=== PATIENT | female | born 1985 | race Caucasian/White ===

== ENCOUNTER → 2017-01-30 | Outpatient (CLI) | payer OTHER ==
[2017-01-30 07:54] LABS: CH 31.5; CHCM 35.3; HCT 42.6 % (34.0-46.0); HDW 2.92; HGB 14.8 gm/dL (11.4-16.0); MCH 31.1 pg (25.0-35.0); MCHC 34.8 g/dL (31.0-37.0); MCV 89.6 fL (80.0-100.0); Mean Platelet Volume 6.9; RBC 4.76 m/uL (3.80-5.40); RDW 13.2 % (11.5-15.5); WBC 6.6 k/uL (3.8-10.6)
[2017-01-30 08:17] LABS: Anion Gap 10 mmol/L; Blood Urea Nitrogen 12 mg/dL (7-17); Calcium 9.5 mg/dL (8.4-10.2); Carbon Dioxide 27 mmol/L (22-30); Chloride 104 mmol/L (98-107); Glucose 85 mg/dL (74-99); Non-African American GFR(MDRD) >60 (>60 ml/min/1.73 sqM); Sodium 141 mmol/L (137-145)
== END | disposition home or self-care (01) ==
LOC: LABWHC1 07:19
PROVIDERS: ATTEND Internal Medicine Interventional Cardiology
DX: E05.90 Thyrotoxicosis, unspecified without thyrotoxic crisis or storm (principal)
CPT/HCPCS: 36415; 80048; 84439; 84443; 85027

== ENCOUNTER 2017-09-21 20:27 | Emergency (ER) | payer OTHER ==
[2017-09-21 20:39] VITALS: BP 133/80; PULSE 88; RESP 16; TEMP 98.5
[2017-09-21] MEDS ORDERED: HYDROcodone/APAP 5-325MG 1 EACH TAB PO STA (20:56)
[2017-09-21] MEDS ORDERED: DIPH,PERTUS(ACELL)TETVAC-LF 0.5 ML VIAL IM ONE (20:56)
[2017-09-21] MEDS ORDERED: AMOXIC-POT CLAV 875MG STARTER 2 EACH TABLET PO STA (20:57)
--- NOTE | 2017-09-21 21:29 | ED ---
Animal Bite HPI - General Chief Complaint: Animal Bite Stated Complaint: Dog bite Time Seen by Provider: 09/21/17 20:47 Source: patient Mode of arrival: ambulatory Limitations: no limitations - History of Present Illness Initial Comments: 32-year-old female patient presents to the emergency department today for evaluation of animal bite to the left ring finger. Patient states approximately an hour and a half prior to arrival she was breaking up 2 dogs from fighting when the one dog bit her in the finger. She states it did go through her nail. Patient states that she is in significant amount of pain. She is unsure when her last tetanus vaccine was given. She denies any other injuries. She denies any paresthesia to the finger. Patient denies any headache, neck pain, back pain, chest pain, shortness of breath, dizziness, weakness, abdominal pain, nausea, vomiting, or difficulties with bowel movements or urination. - Related Data Previous Rx's Medication Instructions Recorded Amoxic-Pot Clav 875-125Mg 1 tab PO Q12HR #20 tablet 09/21/17 [Augmentin 875-125] Ibuprofen [Motrin] 600 mg PO Q8HR PRN #20 tab 09/21/17 Allergies Allergy/AdvReac Type Severity Reaction Status Date / Time No Known Allergies Allergy Verified 09/21/17 20:39 Review of Systems ROS Statement: Those systems with pertinent positive or pertinent negative responses have been documented in the HPI. ROS Other: All systems not noted in ROS Statement are negative. Past Medical History Past Medical History: No Reported History History of Any Multi-Drug Resistant Organisms: None Reported Past Surgical History: No Surgical Hx Reported Past Psychological History: No Psychological Hx Reported Smoking Status: Former smoker Past Alcohol Use History: Occasional Past Drug Use History: None Reported General Exam Limitations: no limitations General appearance: alert, in no apparent distress, other (This is a well- developed, well-nourished adult female patient in no acute distress. Vital signs upon presentation are temperature 98.5F, pulse 88, respirations 16, blood pressure 133/80, pulse ox 99% on room air.) Eye exam: Present: normal appearance, PERRL, EOMI. Absent: scleral icterus, conjunctival injection, periorbital swelling ENT exam: Present: normal exam, normal oropharynx, mucous membranes moist Respiratory exam: Present: normal lung sounds bilaterally. Absent: respiratory distress, wheezes, rales, rhonchi, stridor Cardiovascular Exam: Present: regular rate, normal rhythm, normal heart sounds. Absent: systolic murmur, diastolic murmur, rubs, gallop, clicks Extremities exam: Present: full ROM, normal capillary refill, other (Left ring finger exhibits laceration through the nail. Nail is avulsed at the area of the left proximal nail fold. Skin is otherwise pink, warm, and dry. Cap refills less than 3 seconds. Radial pulses 2+ and equal bilaterally.). Absent: normal inspection, tenderness, pedal edema, joint swelling, calf tenderness Neurological exam: Present: alert, oriented X3, CN II-XII intact Psychiatric exam: Present: normal affect, normal mood Skin exam: Present: warm, dry, intact, normal color. Absent: rash Course Vital Signs 09/21/17 20:35 Temperature 98.5 F Pulse Rate 88 Respiratory 16 Rate Blood Pressure 133/80 O2 Sat by Pulse 99 Oximetry Medical Decision Making - Medical Decision Making 32-year-old female patient presented to the emergency department today for evaluation of a dog bite to the left ring finger. Physical examination did reveal laceration through the nail but did pull the nail from the proximal nail fold. I did inject lidocaine 1% to the area and reinserted the nail to the fold. The patient tolerated this procedure well. It was soaked in an iodine solution. We did apply bacitracin and dressed the wound. She is educated regarding signs or symptoms of infection. She started on Augmentin. She is instructed to follow-up with her primary care physician for recheck. She is instructed to return here immediately for any new, worsening, or concerning symptoms. She verbalizes understanding and agrees with this plan. Disposition Clinical Impression: Dog bite, Nail bed injury Disposition: HOME SELF-CARE Condition: Good Instructions: Animal Bite (ED) Additional Instructions: Keep wound clean and dry. Follow-up with the primary care physician for recheck in 1-2 days. Complete antibiotic prescription and full. Return here immediately for any new, worsening, or concerning symptoms. Prescriptions: Amoxic-Pot Clav 875-125Mg [Augmentin 875-125] 1 tab PO Q12HR #20 tablet Ibuprofen [Motrin] 600 mg PO Q8HR PRN #20 tab PRN Reason: Pain Referrals: Randy Hirsch MD [Primary Care Provider] - 1-2 days Time of Disposition: :28
== END 2017-09-21 21:50 | disposition home or self-care (01) ==
LOC: EC 20:27
DX: S61.315A Laceration without foreign body of left ring finger with damage to nail, initial encounter (principal); Z87.891 Personal history of nicotine dependence; Z23 Encounter for immunization; W54.0XXA Bitten by dog, initial encounter
CPT/HCPCS: 90471; 90715; 99283

== ENCOUNTER 2017-10-20 21:35 | Emergency (ER) | payer OTHER ==
[2017-10-20 21:39] VITALS: BP 135/95; PULSE 76; RESP 18; TEMP 98.2
[2017-10-20] MEDS ORDERED: ONDANSETRON 4 MG/2 ML VIAL IVP STA (22:09)
[2017-10-20] MEDS ORDERED: ACETAMINOPHEN TAB 325 MG TAB PO STA (22:09)
--- NOTE | 2017-10-20 22:41 | CT ---
EXAMINATION TYPE: CT brain wo con DATE OF EXAM: 10/20/2017 COMPARISON: NONE HISTORY: Visual disturbance for approximately [address] DLP: 983.9 mGycm. Automated Exposure Control for Dose Reduction was Utilized. TECHNIQUE: CT scan of the head is performed without contrast. FINDINGS: Ventricles and sulci appear normal. There is no mass effect nor midline shift. There is n o sign of intracranial hemorrhage. Calvarium appears intact. There is no evidence of cerebral edema. CONCLUSION: Normal CT scan of the brain.
[2017-10-20] MEDS ORDERED: KETOROLAC 30 MG/ML 1 ML VIAL IM STA (23:05)
[2017-10-20] MEDS ORDERED: MECLIZINE 12.5 MG TAB PO STA (23:05)
[2017-10-20 23:33] LABS: Glucose,Whole Blood 125 mg/dL (75-99)
--- NOTE | 2017-10-20 23:42 | ED ---
Dizziness HPI - General Chief Complaint: Dizziness Stated Complaint: Vision problems Time Seen by Provider: 10/20/17 21:58 Source: patient Mode of arrival: ambulatory Limitations: no limitations - History of Present Illness Initial Comments: 32-year-old female presenting with black spots in her vision. Patient states at work around 8:30 PM she began to develop black spots in her vision like she was "staring at the sun". She states this continued for about an hour. Then developed a mild headache and some nausea. Patient states she's had similar symptoms in the past and was diagnosed with complex migraines. She denies any fevers chills, focal weakness or numbness, headache injury. States her LMP was one week prior. She states she is concerned that she is hypoglycemic because she has had many episodes of low blood sugar in the past. She denies any history of diabetes or use of diabetic medications. - Related Data Previous Rx's Medication Instructions Recorded Acetaminophen [Tylenol] 500 mg PO Q4-6H PRN #12 tab 10/20/17 Meclizine [Antivert] 25 mg PO BID PRN #12 tab 10/20/17 Allergies Allergy/AdvReac Type Severity Reaction Status Date / Time No Known Allergies Allergy Verified 10/20/17 21:39 Review of Systems ROS Statement: Those systems with pertinent positive or pertinent negative responses have been documented in the HPI. Review of Systems Constitutional: Denies fever, chills Eyes: Positive change in vision, Denies pain Ears, nose, mouth, throat: Denies headaches, Denies sore throat Cardiovascular: Denies chest pain. Denies palpitations Respiratory: Denies shortness of breath, Denies cough Gastrointestinal: Denies abdominal pain. Denies nausea, vomiting, diarrhea. Genitourinary: Denies hematuria, Denies infections Musculoskeletal: Denies pain, Denies swelling Integumentary: Denies rash Neurological: Positive headache, focal weakness, focal numbness Psychiatric: Denies anxiety, Denies depression Hematologic/Lymphatic: Denies easy bleeding or bruising ROS Other: All systems not noted in ROS Statement are negative. Past Medical History Past Medical History: No Reported History History of Any Multi-Drug Resistant Organisms: None Reported Past Surgical History: No Surgical Hx Reported Past Psychological History: No Psychological Hx Reported Smoking Status: Former smoker Past Alcohol Use History: Occasional Past Drug Use History: None Reported General Exam - General Exam Comments Initial Comments: General: Awake, alert, No acute Distress HENT: Normocephalic. Atraumatic Eyes: PERRL. EOMI. No scleral icterus. No injected conjunctiva. Visual acuity: 20/10 both, 20/10 left, 20/10 right. Visual paul intact. Neck: Full ROM Chest/Lungs: Clear to auscultation bilaterally. No wheezing, rhonchi, or rales Cardiac: Regular rate, rhythm. No murmurs or rubs Abdomen/GI: [Soft, nontender, nondistended. No rebound, guarding, or rigidity. Musculoskeletal: Full ROM Skin: Warm, dry, intact Neurologic: A/Ox3, no weakness, no sensory deficit, no abnormal gait, no coordination deficit Limitations: no limitations Course Vital Signs 10/20/17 21:37 Temperature 98.2 F Pulse Rate 76 Respiratory 18 Rate Blood Pressure 135/95 O2 Sat by Pulse 98 Oximetry Medical Decision Making - Medical Decision Making 32-year-old female presenting with she will change headache. On initial exam the patient is awake, alert, no acute distress. VSS. Patient has no neurologic or visual deficit on exam. Her CT was negative. Patient refused an IV, IV fluids, IV or IM Toradol. She stated she was just concerned that she had low blood sugar. POC glucose was 125. Her test was negative. She declined any further testing or treatment. Unlike SAH as patient has had similar symptoms in the past. She was seen by an filter tender jelly 6 months prior for similar symptoms and was instructed to get an MRI. She states she will follow up again for re-evaulation and possible MRI. She was given return to ED instructions and told to follow up with her primary care physician. - Lab Data Lab Results 10/20/17 Range/Units 22:17 Urine HCG, Qual Not Detected (Not Detectd) Disposition Clinical Impression: Headache, Dizziness Disposition: HOME SELF-CARE Condition: Good Prescriptions: Acetaminophen [Tylenol] 500 mg PO Q4-6H PRN #12 tab PRN Reason: Pain Meclizine [Antivert] 25 mg PO BID PRN #12 tab PRN Reason: Vertigo Is patient prescribed a controlled substance at d/c from ED?: No Referrals: Randy Hirsch MD [Primary Care Provider] - 1-2 days
== END 2017-10-20 23:47 | disposition home or self-care (01) ==
LOC: EC 21:35
DX: R42 Dizziness and giddiness (principal); R51 Headache; R11.0 Nausea; Z87.891 Personal history of nicotine dependence; Z53.29 Procedure and treatment not carried out because of patient's decision for other reasons
CPT/HCPCS: 36415; 70450; 81025; 99284

== ENCOUNTER 2018-07-24 14:22 | Emergency (ER) | payer OTHER ==
[2018-07-24] MEDS ORDERED: SODIUM CHLORIDE 0.9% 1,000 ML IV ONE (15:24)
[2018-07-24 15:46] LABS: Basophils % (A) 1 %; Eosinophils # (A) 0.1 k/uL (0-0.7); Eosinophils % (A) 1 %; HCT 42.5 % (34.0-46.0); HGB 14.5 gm/dL (11.4-16.0); Lymphocytes # (A) 0.8 k/uL (1.0-4.8); Lymphocytes % (A) 17 %; MCH 29.9 pg (25.0-35.0); MCV 87.9 fL (80.0-100.0); Mean Platelet Volume 6.8; Monocytes # (A) 0.6 k/uL (0-1.0); Monocytes % (A) 13 %; Neutrophils # (A) 3.3 k/uL (1.3-7.7); Neutrophils % (A) 65 %; Platelet Count 307 k/uL (150-450); RBC 4.84 m/uL (3.80-5.40); RDW 12.7 % (11.5-15.5)
[2018-07-24 16:00] LABS: ALT 45 U/L (9-52); AST 30 U/L (14-36); Albumin 4.7 g/dL (3.5-5.0); Alkaline Phosphatase 43 U/L (38-126); Anion Gap 9 mmol/L; Blood Urea Nitrogen 11 mg/dL (7-17); Calcium 9.6 mg/dL (8.4-10.2); Carbon Dioxide 28 mmol/L (22-30); Chloride 103 mmol/L (98-107); Glucose 94 mg/dL (74-99); Potassium 4.3 mmol/L (3.5-5.1); Sodium 140 mmol/L (137-145); Total Bilirubin 0.8 mg/dL (0.2-1.3); Total Protein 7.8 g/dL (6.3-8.2)
[2018-07-24 16:09] VITALS: RESP 18
--- NOTE | 2018-07-24 16:13 | CT ---
EXAMINATION TYPE: CT brain wo con DATE OF EXAM: 07/24/2018 COMPARISON: 10/20/2017 INDICATION: Dizziness. DLP: 1072.4 mGycm, Automated exposure control for dose reduction was used. CONTRAST: None CT of the brain is performed utilizing 3 mm thick sections through the posterior fossa and 3 mm thick sections through the remaining calvarium. Study is performed within 24 hours of arrival to the hosp [facility]. No abnormal hyperdensity is present to suggest an acute intracranial hemorrhage. No mass lesion is evident. No acute infarcts are evident. Ventricles and sulci are appropriate for the patient age. Paranasal sinuses and mastoid air cells within the [id number] are clear. IMPRESSIONS: 1. Normal CT Brain
--- NOTE | 2018-07-24 16:13 | XR ---
EXAMINATION TYPE: XR chest 2V DATE OF EXAM: 07/24/2018 COMPARISON: None INDICATION: Pain syncope TECHNIQUE: Frontal and lateral views of the chest are obtained. FINDINGS: The heart size is normal. The pulmonary vasculature is normal. The lungs are clear. IMPRESSION: 1. No acute pulmonary process.
[2018-07-24] MEDS ORDERED: MECLIZINE 12.5 MG TAB PO STA (16:46)
[2018-07-24] MEDS ORDERED: DIAZEPAM 5 MG/ML 2 ML INJ IVP STA (17:00)
--- NOTE | 2018-07-24 17:56 | ED ---
Headache HPI - General Chief Complaint: Headache Stated Complaint: dizziness Time Seen by Provider: 07/24/18 14:50 Mode of arrival: ambulatory Limitations: no limitations - History of Present Illness Initial Comments: 33-year-old female who denies past medical history presenting today for chief complaint of dizziness times a week and half. Patient states that she has had lightheaded/dizzy feeling, the "kind of feeling when you get off of a carnival ride" for the past 2 weeks. She also states she feels as though she is weak, she denies any focal weakness she states is generalized. Patient denies any URI symptoms, she denies any syncopal episodes. Patient denies any chest pain, dyspnea, dyspnea on exertion. Patient denies any recent travel, ear pain. Patient does admit to reading of the right ear that began last night this was intermittent. Patient states she has history of chronic migraines however she states she has not had headaches throughout the course the 2 weeks, she states she had 2 around off they were not constant thereafter worst headache of her life. She states she was not concerned about these headaches. Patient denies any head injury. Patient denies any nausea or vomiting. Patient states she has had decreased appetite. Patient denies any abdominal pain or . Patient denies any recent antibiotic use, fever chills or night sweats. Patient denies any pain in the ear or hearing loss. Patient states she's feels as though she is off balance but her gait is normal when she ambulates. Pt states these symptoms occurred 3 days after a chiropractor appointment. Patient states she did attempt to take her mother's Antivert, she denies this helping her alleviate symptoms. Patient states she has been following this complaint with her primary care provider who recommended brain imaging. She does have a follow-up with ears nose throat scheduled for July 30. Remainder review of systems is negative, patient denies any recent back pain, abdominal pain, nausea or vomiting, numbness or tingling, dysuria or hematuria, constipation or diarrhea, head injury, diplopia, vision loss or any other complaints. - Related Data Home Medications Medication Instructions Recorded Confirmed Amoxicillin/Potassium Clav 1 tab PO Q12HR 07/24/18 07/24/18 [Augmentin 875-125 Tablet] Previous Rx's Medication Instructions Recorded Meclizine [Antivert] 25 mg PO TID 5 Days #15 tab 07/24/18 predniSONE 50 mg PO DAILY 5 Days #5 tab 07/24/18 Allergies Allergy/AdvReac Type Severity Reaction Status Date / Time No Known Allergies Allergy Verified 07/24/18 15:56 Review of Systems ROS Statement: Those systems with pertinent positive or pertinent negative responses have been documented in the HPI. ROS Other: All systems not noted in ROS Statement are negative. Past Medical History Past Medical History: No Reported History History of Any Multi-Drug Resistant Organisms: None Reported Past Surgical History: No Surgical Hx Reported Past Psychological History: No Psychological Hx Reported Smoking Status: Former smoker Past Alcohol Use History: Occasional Past Drug Use History: None Reported General Exam - General Exam Comments Initial Comments: General: The patient is awake and alert, in no distress, and does not appear acutely ill. Eye: +3 mm pupils are equal, round and reactive to light, extra-ocular movements are intact. No nystagmus noted with rapid movement of head. There is normal conjunctiva bilaterally. No signs of icterus. Ears, nose, mouth and throat: There are moist mucous membranes and no oral lesions. Neck: The neck is supple, there is no tenderness or JVD. Cardiovascular: There is a regular rate and rhythm. No murmur, rub or gallop is appreciated. Respiratory: Lungs are clear to auscultation, respirations are non-labored, breath sounds are equal. No wheezes, stridor, rales, or rhonchi. Gastrointestinal: Soft, non-distended, non-tender abdomen without masses or organomegaly noted. There is no rebound or guarding present. No CVA tenderness. Bowel sounds are unremarkable. Musculoskeletal: Normal ROM, no tenderness. Strength 5/5. Sensation intact. Pulses equal bilaterally 2+. Neurological: A&O x 3. CN II-XII intact, memory intact to immediately, intermediate and penitentiary recall. Able to follow simple verbal. Able to name a common object (pen). High quality, labial (pa) and lingual (la) speech. Low quality posterior pharynx/larynx (ga) voice sounds. Able to express general knowledge (days in a week). No hemineglect or inattention noted. Finger agnosia (-) and spatially oriented. Light touch sensation present over the face , chest, abdomen, back, UE bilaterally, and LE bilaterally. Able to localize point during point localization b/l and extinction. No visible bulk atrophy, hypertrophy, fasciculations, or myoclonus of the UE or LE b/l. Full PROM in UE and LE b/l. Bilateral muscle strength 5/5 for the following muscles: deltoid, biceps, triceps, brachioradialis, wrist extensors/flexor, hip flexor, hip abductors/adductors, hamstrings, quadriceps, feet dorsiflexors/plantar flexors. Finger to nose, finger to the examiners finger, and heel to aguilar coordinated and accurate b/l. Coordinated and even demonstration of hand flip b/l. Gait is coordinated and even in stride with tandem, toe and heel walk. . (-) pronator drift. No nuchal rigidity. (-) Brudzinskis and Kernig signs. Skin: Skin is warm and dry and no rashes or lesions are noted. Psychiatric: Cooperative, appropriate mood & affect, normal judgment. Limitations: no limitations Course Vital Signs 07/24/18 07/24/18 07/24/18 14:26 14:51 15:00 Temperature 97.6 F Pulse Rate 115 H Respiratory 16 18 18 Rate Blood Pressure 143/95 146/107 146/107 O2 Sat by Pulse 100 99 100 Oximetry 07/24/18 07/24/18 07/24/18 15:30 16:00 16:30 Temperature Pulse Rate Respiratory 18 18 18 Rate Blood Pressure 126/84 127/87 128/88 O2 Sat by Pulse 99 100 99 Oximetry 07/24/18 07/24/18 07/24/18 17:00 18:30 19:20 Temperature 98.5 F Pulse Rate 90 Respiratory 18 18 18 Rate Blood Pressure 129/83 132/86 119/87 O2 Sat by Pulse 100 97 98 Oximetry Medical Decision Making - Medical Decision Making 33 year female denies past medical history presenting today for chief complaint of dizziness and tinnitus. Given history of symptoms occurring 3 days after a chiropractic visit there was concern for possible dissection of the carotid, CTA negative of the neck and brain. CT without contrast negative for lesions, masses or other acute intracranial process at this time. Patient has no gait ataxia on exam, no focal neurological deficits. Patient does admit to current symptoms, there was no noted nystagmus with rapid movement of the head. Pupils are round and reactive to light. No diplopia or vision loss. No fever or meningeal irritation signs. Patient was evaluated in person by attending provider . He evaluated patient and obtained history. Given pt stated she felt lightheaded, EKG and cardiac enzymes obtained, no acute abnormalities. pt did deny SOB or chest pain. Low suspicion for ACS given history, RF and findings today. At this time we do recommend outpatient follow-up with neurology, differential diagnoses include labyrinthitis. Pt given RX for steroids and antivert. Pt has ENT appointment scheduled for 07/30/18. She was instructed to keep this appointment in addition to neurology follow-up. Patient is also instructed to follow-up with primary care provider in the next 1 -2 days, I did recommend obtaining a prescription for outpatient MRI at this time. Patient is agreeable with plan and comfortable discharge. Patient states she did have some improvement with administration of Valium. Pt discharged, return parameters were discussed at length. Patient verbalizes understanding. Patient's vital signs within acceptable limits upon discharge. - Lab Data Result diagrams: 07/24/18 15:27 07/24/18 15:27 Lab Results 07/24/18 07/24/18 07/24/18 Range/Units 15:27 15:27 15:27 WBC 5.0 (3.8-10.6) k/uL RBC 4.84 (3.80-5.40) m/uL Hgb 14.5 (11.4-16.0) gm/dL Hct 42.5 (34.0-46.0) % MCV 87.9 (80.0-100.0) fL MCH 29.9 (25.0-35.0) pg MCHC 34.0 (31.0-37.0) g/dL RDW 12.7 (11.5-15.5) % Plt Count 307 (150-450) k/uL Neutrophils % 65 % Lymphocytes % 17 % Monocytes % 13 % Eosinophils % 1 % Basophils % 1 % Neutrophils # 3.3 (1.3-7.7) k/uL Lymphocytes # 0.8 L (1.0-4.8) k/uL Monocytes # 0.6 (0-1.0) k/uL Eosinophils # 0.1 (0-0.7) k/uL Basophils # 0.0 (0-0.2) k/uL Sodium 140 (137-145) mmol/L Potassium 4.3 (3.5-5.1) mmol/L Chloride 103 (98-107) mmol/L Carbon Dioxide 28 (22-30) mmol/L Anion Gap 9 mmol/L BUN 11 (7-17) mg/dL Creatinine 0.63 (0.52-1.04) mg/dL Est GFR (CKD-EPI)AfAm >90 (>60 ml/min/1.73 sqM) Est GFR (CKD-EPI)NonAf >90 (>60 ml/min/1.73 sqM) Glucose 94 (74-99) mg/dL Calcium 9.6 (8.4-10.2) mg/dL Total Bilirubin 0.8 (0.2-1.3) mg/dL AST 30 (14-36) U/L ALT 45 (9-52) U/L Alkaline Phosphatase 43 (38-126) U/L Troponin I <0.012 (0.000-0.034) ng/mL Total Protein 7.8 (6.3-8.2) g/dL Albumin 4.7 (3.5-5.0) g/dL - EKG Data EKG Comments: A 12-lead EKG was performed and shows the following: Rate is 87bpm, and rhythm is normal sinus. There are normal QRS complexes and normal R-wave progression. ST segments have no elevation or depression, and MN segments appear normal. Disposition Clinical Impression: Vertigo, Tinnitus Disposition: HOME SELF-CARE Condition: Good Instructions (If sedation given, give patient instructions): Vertigo (ED) Additional Instructions: Please use medication as discussed. Please follow-up with family doctor in the next 2 days, please follow-up with ENT as scheduled. Please follow-up with neurology in next week. Please return to emergency room if the symptoms increase or worsen or for any other concerns. Prescriptions: Meclizine [Antivert] 25 mg PO TID 5 Days #15 tab predniSONE 50 mg PO DAILY 5 Days #5 tab Is patient prescribed a controlled substance at d/c from ED?: No Referrals: Randy Hirsch MD [Primary Care Provider] - 1-2 days Bry Washington MD [STAFF PHYSICIAN] - 1-2 days Celine Washington MD [STAFF PHYSICIAN] - 1-2 days Sabrina Houser MD [Medical Doctor] - 1-2 days Time of Disposition: 18:55
--- NOTE | 2018-07-24 18:13 | CT ---
EXAMINATION TYPE: CT angio head neck DATE OF EXAM: 07/24/2018 HISTORY: Dizziness. COMPARISON: None CT DLP: 330.2 mGycm. Automated Exposure Control for Dose Reduction was Utilized. TECHNIQUE: CTA scan of the neck is performed with IV Contrast, patient injected with 65ml mL of Isov ue 370, axial images are obtained, coronal and sagittal reformatted images are reviewed. Three-D carolynn nstructed images are created on an independent workstation and reviewed. FINDINGS: There is normal branching pattern of the great vessels on the aortic arch. There is bilateral arteria l flow in the subclavian arteries. There is arterial flow in the vertebral arteries bilaterally which are fairly symmetric. There is arterial flow in the common internal and external carotid arteries bi laterally. There is no evidence of carotid or vertebral artery aneurysm or dissection. There is arterial flow in the anterior middle and posterior cerebral arteries. There is arterial flow in the vertebrobasilar artery system. There is no mass effect. There is no evidence of intracranial aneurysm or neovascularity. There is no evidence of hemodynamic stenosis. There is bilateral patency of the posterior communicating arteries. There is normal contrast opacification of the venous sinuses . IMPRESSION: Normal CT angiogram of the neck. Normal CT angiogram of the brain.
[2018-07-24 19:22] VITALS: BP 119/87; PULSE 90; TEMP 98.5
== END 2018-07-24 19:33 | disposition home or self-care (01) ==
LOC: EC 14:22
DX: H93.19 Tinnitus, unspecified ear (principal); R42 Dizziness and giddiness; R51 Headache; R63.0 Anorexia; Z53.20 Procedure and treatment not carried out because of patient's decision for unspecified reasons; Z87.891 Personal history of nicotine dependence
CPT/HCPCS: 36415; 93005; 80053; 84484; 85025; 71046; 70496; 70450; 70498; 99284; 96374; 96361 ×2; J3360; Q9967

== ENCOUNTER → 2023-05-09 | Outpatient (CLI) | payer OTHER | END | disposition home or self-care (01) | LOC: LABWHC1 13:01 | PROVIDERS: ATTEND Chiropractor | DX: E55.9 Vitamin D deficiency, unspecified (principal); E46 Unspecified protein-calorie malnutrition; E01.8 Other iodine-deficiency related thyroid disorders and allied conditions; K59.9 Functional intestinal disorder, unspecified | CPT/HCPCS: 36415 ==